=== PATIENT | female | born 1935 ===

== ENCOUNTER → 2023-08-11 10:34 | Outpatient (REF) | payer MEDICARE, SELFPAY ==
[2023-08-11 10:57] LABS: HDL Cholesterol 51 mg/dl; LDL Cholesterol, Calculated 95 mg/dl; Total Cholesterol 160 mg/dl (50-199); Triglyceride 71 mg/dl (10-149); Very Low Density Lipoprotein 14 mg/dl (0-30)
== END ==
LOC: OLABN 10:34
PROVIDERS: ATTENDING PHYSICIAN Student in an Organized Health Care Education/Training Program
DX: E78.5 Hyperlipidemia, unspecified (principal)
CPT/HCPCS: 36415; 80061

== ENCOUNTER → 2024-08-07 10:18 | Outpatient (REF) | payer MEDICARE, SELFPAY ==
[2024-08-07 10:59] LABS: HDL Cholesterol 45 mg/dl; LDL Cholesterol, Calculated 123 mg/dl; Total Cholesterol 184 mg/dl (50-199); Triglyceride 82 mg/dl (10-149); Very Low Density Lipoprotein 16 mg/dl (0-30)
== END ==
LOC: OLABN 10:18
PROVIDERS: ATTENDING PHYSICIAN Student in an Organized Health Care Education/Training Program
DX: E78.5 Hyperlipidemia, unspecified (principal)
CPT/HCPCS: 36415; 80061

== ENCOUNTER → 2025-05-29 09:38 | Outpatient (REF) | payer MEDICARE, SELFPAY ==
[2025-05-29 11:18] LABS: Hematocrit 34.7 % (37.0-47.0); Hemoglobin 10.8 g/dL (12.0-16.0); Mean Corp Hgb Conc. 31.1 g/dL (33.0-37.0); Mean Corpuscular Volume 99.1 fL (81.0-99.0); Nucleated Red Blood Cells % 0 %; Platelet Count 187 10^3/uL (130-400); Red Cell Dist. Width 14.5 % (11.5-14.5)
[2025-05-29 11:29] LABS: ALT (SGPT) 11 U/L (0-35); AST (SGOT) 17 U/L (14-36); Albumin 2.9 g/dl (3.5-5.0); Alkaline Phosphatase 73 U/L (38-126); Blood Urea Nitrogen 21 mg/dl (7-17); Calcium 9.2 mg/dl (8.4-10.2); Carbon Dioxide 32 mmol/L (22-30); Chloride 104 mmol/L (98-107); Glucose 83 mg/dl (70-99); Magnesium 1.8 mg/dl (1.6-2.3); Potassium 5.0 mmol/L (3.5-5.1); Sodium 135 mmol/L (135-145); Total Protein 5.5 g/dl (6.3-8.2); eGFR 53.85
== END ==
LOC: OLABN 09:38
PROVIDERS: ATTENDING PHYSICIAN Student in an Organized Health Care Education/Training Program
DX: R60.9 Edema, unspecified (principal)
CPT/HCPCS: 36415; 80053; 83735; 83880; 85025